=== PATIENT | male | born 1975 | race Caucasian/White ===

== ENCOUNTER 2017-02-01 17:44 | Emergency (ER) | payer BC ==
--- NOTE | 2017-02-12 21:19 | ER ---
ADMIT: 02/01/2017 RM/LOC: ER [facility] MR#: [id number] [address] [id number] [facility] [address] [place] [id number] Emergency Room Report SEX: M AGE: 42 : 1975 DATE: 02/01/2017 ADDENDUM: CHIEF COMPLAINT: Cough. HISTORY OF PRESENT ILLNESS: This is a 42-year-old, who works for [employer]. He said everyone at his work has the same symptoms. He was not able to go to work today, so he came to the ER. COURSE IN THE EMERGENCY ROOM: I am sending him home with Phenergan with codeine to help with the cough. I told him to push fluids, try Vicks VapoRub. Follow up with his primary care physician if worsens. I did tell him to expect the cough to stay there for about a couple of weeks, but if he develops any kind of shortness of breath, to return to the ER or follow up with his PCP. CLINICAL IMPRESSION: Bronchitis. JOAN Guardado / Alessandro Reno MD / leatha JOB #: [id number] CC: Barrett Newell MD, Attending Physician Louis Escobar MD, Family Physician
== END 2017-02-01 20:10 | disposition home or self-care (01) ==
LOC: ER 17:44
DX: J40 Bronchitis, not specified as acute or chronic (principal); F17.210 Nicotine dependence, cigarettes, uncomplicated; Z88.0 Allergy status to penicillin